=== PATIENT | female | born 1960 | race Caucasian/White ===

== ENCOUNTER 2016-08-28 13:35 | Emergency (ER) | payer OTHER ==
[~2016-08-28] VITALS: Ht 157.5 cm; Wt 109.5 kg
[~2016-08-28 13:35] MED LIST: ALBUTEROL17 GM; ASPIR 8181 M1 PO; BENZONATATE200 MG PO; CLONAZEPAM0.5 M1 PO; CLONIDINE HCL0.1 MG PO; COMBIVENT INH14.7 GM IH; DIOVAN160 MG PO; Ecotrin PO; FENTANYL1 EAC5 TD; FLOVENT 22120 INHALA IH; GABAPENTIN300 MG PO; GEMFIBROZIL600 MG PO; LOPID600 M1 PO; METOPROLOL TART50 MG PO; MYSOLINE50 MG PO; NABUMETONE500 MG PO; NAPROSYN500 MG PO; NEURONTIN100 MG PO; NEURONTIN800 MG PO; NORTRIPTYLINE H25 MG PO; OXYCODONE-APAP1 EAC6 PO; PROMETHAZINE12.5 M1 PO; PROPOXACET N PO; Percocet 7.5/500,End PO; SERTRALINE HCL100 MG PO; SIMVASTATIN20 M1 PO; TIZANIDINE HCL4 MG PO; TOPAMAX100 MG PO; TOPROL XL50 MG PO; ULTRAM50 MG PO; VENTOLIN HFA18 GM IH; VICODIN,LORT1 TABLET PO
[2016-08-28 14:41] LABS: EOSINOPHIL (%) 0.2 % (0-5); HEMATOCRIT 42.6 % (36.0-46.0); IMMATURE GRANULOCYTE (%) 0.5 % (0.0-0.7); IMMATURE GRANULOCYTE COUNT 0.1 K/uL; INSTRUMENT ABS NEUTROPHIL CT 10.4 K/uL; LYMPHOCYTE COUNT 1.1 K/uL (1.0-2.8); MCH 31.6 PG (29.0-34.0); MCHC 33.1 G/DL (30.0-36.0); MCV 95.5 FL (83-99); MONOCYTE (%) 7.9 % (3-12); NEUTROPHIL (%) 82.4 % (45-76); NEUTROPHIL COUNT 10.4 K/uL (1.8-6.4); RBC DIS.WIDTH-CV 14.5 % (11.8-14.6); RBC DIS.WIDTH-SD 50.7 % (39-53); RED BLOOD COUNT 4.46 M/uL (3.80-5.20); WHITE BLOOD COUNT 12.6 K/uL (4.1-10.2)
[2016-08-28 14:55] LABS: CHLORIDE 107 mEq/L (99-109); POTASSIUM 4.5 mEq/L (3.7-5.4); SODIUM 136 mEq/L (136-147)
[2016-08-28 14:57] LABS: GLUCOSE 109 mg/dL (70-99)
[2016-08-28 14:58] LABS: ANION GAP 10 MEQ/L (2-14)
[2016-08-28 15:01] LABS: GFR ESTIMATE (CALCULATED) 49 mL/min/
[2016-08-28 15:02] LABS: UREA NITROGEN (BUN) 16 mg/dL (9-23)
[2016-08-28 15:30] LABS: INFLUENZA A VIRAL ANTIGEN NEGATIVE; INFLUENZA B VIRAL ANTIGEN NEGATIVE
[2016-08-28 16:02] LABS: HEMATOLOGY COMMENT 1 SN; MEAN PLAT.VOLUME 10.6 uM^3 (9.5-12.4); PLAT.SUFFICIENCY ADEQUATE; PLATELET COUNT 180 K/uL (156-360)
[2016-08-28 16:51] LABS: ADD MIUA? YES; BILIRUBIN NEGATIVE; BLOOD NEGATIVE; COLOR YELLOW ((YELLOW)); GLUCOSE (STRIP) NEGATIVE; KETONES 5; LEUKOCYTES MODERATE; NITRITE NEGATIVE; PROTEIN (STRIP) 30; SPECIFIC GRAVITY 1.024 (1.000-1.030); UROBILINOGEN 0.2 MG/DL (0.2-1.0)
[2016-08-28 17:32] LABS: RED BLOOD CELLS 0-5 /HPF (0-5)
[2016-08-28 17:33] LABS: BACTERIA 2+ /HPF; EPITHELIAL CELLS 2+ /HPF; MUCUS NONE SEEN /LPF; UCUL ADDED? YES
[2016-08-28 19:35] LABS: APPEARANCE CLEAR/COLORLESS; RED CELL AREA COUNTED 18; RED CELL COUNT 1 /MM^3 (0-1); RED CELL DILUTION 1; WBC AREA COUNTED 18; WBC DILUTION 1; WHITE CELL COUNT 0 /MM^3 (0-5); WHITE CELL RAW COUNT 0
[2016-08-28 19:36] LABS: CSF EOSINOPHILS 0 % (0-25); MONO RAW COUNT 0; MONONUCLEAR WBC'S 0 % (50-90); POLY RAW COUNT 0; POLYNUCLEAR WBC'S 0 % (0-3)
[2016-08-28] MEDS ORDERED: KEFLEX500 MG PO (21:12)
[2016-08-28] MEDS ORDERED: FIORICET,ESG1 TABLET PO (21:12)
[2016-08-28 21:46] VITALS: BP 133/76
== END 2016-08-28 21:55 | disposition home or self-care (01) ==
LOC: EME 13:35
PROVIDERS: Emergency Medicine
PROC: 009U3ZX Drainage of Spinal Canal, Percutaneous Approach, Diagnostic (ICD-10-PCS; principal; 2016-08-28)
DX: G43.909 Migraine, unspecified, not intractable, without status migrainosus (principal); N39.0 Urinary tract infection, site not specified; E11.9 Type 2 diabetes mellitus without complications; E78.5 Hyperlipidemia, unspecified; I10 Essential (primary) hypertension; I25.2 Old myocardial infarction; Z98.890 Other specified postprocedural states; Z86.73 Personal history of transient ischemic attack (TIA), and cerebral infarction without residual deficits; Z98.84 Bariatric surgery status; Z91.041 Radiographic dye allergy status; F17.200 Nicotine dependence, unspecified, uncomplicated
CPT/HCPCS: 70450; 80048; 81003; 82945; 83605; 84157; 85025; 85651; 87040; 87070; 87086; 87205; 87502; 89051; 99281; 99285; J0696; J1100; J1885; J2270; J7030; J7050

== ENCOUNTER 2017-01-24 21:47 | Emergency (ER) | payer OTHER ==
[~2017-01-24] VITALS: Ht 157.5 cm; Wt 106.3 kg
[~2017-01-24 21:47] MED LIST changes: +FIORICET,ESG1 TABLET PO; +KEFLEX500 MG PO
[2017-01-24] MEDS ORDERED: PERCOCET 5/31 TABLET PO (23:34)
[2017-01-25 00:03] VITALS: BP 186/88
== END 2017-01-25 00:04 | disposition home or self-care (01) ==
LOC: EME 21:47 → RME 21:47
PROC: 3E0234Z Introduction of Serum, Toxoid and Vaccine into Muscle, Percutaneous Approach (ICD-10-PCS; principal; 2017-01-24)
DX: S80.11XA Contusion of right lower leg, initial encounter (principal); W10.9XXA Fall (on) (from) unspecified stairs and steps, initial encounter; Z23 Encounter for immunization; J44.9 Chronic obstructive pulmonary disease, unspecified; I10 Essential (primary) hypertension; F17.200 Nicotine dependence, unspecified, uncomplicated; Z86.73 Personal history of transient ischemic attack (TIA), and cerebral infarction without residual deficits
CPT/HCPCS: 73564; 73590; 99281; 99283